=== PATIENT | male | born 1955 | race Caucasian/White ===

== ENCOUNTER → 2022-03-24 | Outpatient (CLI) | payer MEDICARE, SELFPAY ==
--- NOTE | 2022-03-24 17:12 | RAD_ITS ---
INDICATION: BACK PAIN EXAMINATION/TECHNIQUE: X-RAY - XR Spine Lumbar 2 or 3 Views COMPARISON: None. FINDINGS: VERTEBRAE: Preserved vertebral body height. No fracture. No spondylolisthesis. Preservation of the normal lumbar lordosis. Severe multilevel facet arthropathy. DISCS: Severe multilevel degenerative disc disease and spondylosis. INCLUDED ABDOMEN: Included bowel gas pattern is non-obstructive. RAD/Lumbar Spine 2 or 3 Views IMPRESSION: No evidence of lumbar spinal fracture or spondylolisthesis. Severe multilevel degenerative disc disease and spondylosis. Electronically Signed: Brijesh Mcadams MD at 17:53 EST ,
== END | disposition home or self-care (01) ==
LOC: RAD 17:08
PROVIDERS: PCP Nurse Practitioner Family; Referring Provider Anesthesiology Pain Medicine; Visit Provider Anesthesiology Pain Medicine
DX: M54.16 Radiculopathy, lumbar region (principal)
CPT/HCPCS: 72100

== ENCOUNTER → 2022-04-28 | Outpatient (CLI) | payer MEDICARE, SELFPAY ==
--- NOTE | 2022-04-28 06:59 | MRI_ITS ---
HISTORY: Low back and right leg pain since 04/01, previous lumbar surgery 2010, evaluate radiculopathy. TECHNIQUE: Multiplanar and multisequence MR images of the lumbar spine were obtained without intravenous contrast. 129 images. COMPARISON: XR 03/24/2022. FINDINGS: VERTEBRAE: Vertebral body heights maintained. Mild degenerative endplate changes without significant bone marrow signal abnormality. ALIGNMENT: Minimal 2 mm retrolisthesis of L2-3 and L3-4. CONUS: Normal morphology and position of the conus medullaris at T12-L1. INTERVERTEBRAL DISCS: T12-L1: No significant posterior disc protrusion, central canal stenosis, or foraminal narrowing based on the sagittal images. L1-2, L2-3: Minimal disc bulges and facet arthropathy. No significant central canal stenosis or foraminal narrowing. L3-4: Posterior disc bulge osteophyte complex with superimposed right paracentral disc protrusion and facet arthropathy resulting in right L4 nerve root impingement, mild central canal stenosis, and moderate bilateral foraminal narrowing with bilateral L3 nerve root abutment. L4-5: Mild disc bulge with marked facet arthropathy superimposed on developmentally short pedicles resulting in mild central canal stenosis and bilateral foraminal narrowing. L5-S1: Minimal posterior disc bulge osteophyte complex with facet arthropathy and tapering of the thecal sac. Mild bilateral foraminal narrowing. SOFT TISSUES: No paraspinal fluid collection. Incompletely imaged 3 cm left renal cystic lesion. MRI/Spine Lumbar (Routine) IMPRESSION: Multilevel degenerative disc disease with right paracentral disc protrusion at L3-4 resulting in right nerve root impingement with mild central canal stenosis and moderate bilateral foraminal narrowing. Mild disc bulge at L4-5 resulting in mild spinal canal stenosis and bilateral foraminal narrowing. Mild degenerative change of L5-S1 with mild bilateral foraminal narrowing. Incompletely imaged left renal cystic lesion. Electronically Signed: Shanika Mclain MD at 9:54 EST ,
== END | disposition home or self-care (01) ==
LOC: MRI 06:52
PROVIDERS: PCP Nurse Practitioner Family; Referring Provider Anesthesiology Pain Medicine; Visit Provider Anesthesiology Pain Medicine
DX: M51.16 Intervertebral disc disorders with radiculopathy, lumbar region (principal); M48.061 Spinal stenosis, lumbar region without neurogenic claudication
CPT/HCPCS: 72148